=== PATIENT | female | born 1955 | race Caucasian/White ===

== ENCOUNTER → 2016-06-08 | Outpatient (CLI) | payer OTHER, MEDICARE ==
[~2016-06-08] MED LIST: /PREG25CA PO; ACET65TA; ADVIL PO; ASPI81TA3; BISA10SU2; BUSP10TA2; COLA100C2; DEPA500T PO; LORTAB; METO50TA4 PO; NORT25CA2 OR; PENNSAID DROPS TOP; PRAV80TA2 PO; SENN8.6T14; SENO8.6T5; SIMV20TA2 PO; THERGRAN; TIZA4TAB OR; TRAM50TA2; TRAM50TA2 OR; ZOMI2.5T PO; tps cream TD
--- NOTE | 2016-06-09 23:58 | ECWPNPC ---
PATIENT NAME: CHRISTOPHER POWELL : 1955 GENDER: FEMALE VISIT DATE: 06/08/2016 DISCHARGE DATE: 06/08/16 1540 VISIT LOCKED DATE TIME: PHYSICIAN: CELENA LEWIS RESOURCE: CELENA LEWIS REASON FOR APPOINTMENT 1. FOLLOWUP-RT ANKLE HISTORY OF PRESENT ILLNESS HISTORY OF PRESENT ILLNESS: PAIN THE PATIENT DESCRIBES THE PAIN... FALL RISK SCREENING: SCREENING :NO FALLS IN THE PAST YEAR TODAY'S VISIT: NOTES: NO FAULT FOLLOWUP FOR RIGHT FOOT/ANKLE PAIN. RATES PAIN TODAY 7/10. PAIN AND SWELLING ARE WORSE IN THE RIGHT FOOT AND ANKLE WITH STANDING AND WALKING. . CURRENT MEDICATIONS TAKING DEPAKOTE 500 MG TABLET DELAYED RELEASE 1 TABLET ORALLY TWICE A DAY TAKING NORTRIPTYLINE HCL 50 MG CAPSULE 1 CAPSULE AT BEDTIME ORALLY QHS TAKING MAXALT-SHOP FIRER/FIREMAN 10 MG TABLET DISPERSIBLE 1 TABLET ON THE TONGUE AND ALLOW TO DISSOLVE NEEDED ONE TIME ORALLY ONCE A DAY TAKING METOPROLOL TARTRATE 50 MG TABLET 1 TABLET ORALLY QHS TAKING PRAVASTATIN SODIUM 40 MG TABLET 1 TABLET ORALLY QHS TAKING CALCIUM 500 +D 500-400 MG-UNIT TABLET ORALLY BID TAKING ASPIRIN EC 81 MG TABLET DELAYED RELEASE 1 TABLET ORALLY ONCE A DAY TAKING TRAMADOL HCL 50 MG TABLET 1 TABLET ORALLY TAKE 1 PO Q 6-8 HRS PRN PAIN MDD=3 TAKING EXTRA STRENGTH ACETAMINOPHEN 500 MG CAPSULE 2 CAPSULES NEEDED ORALLY EVERY 6 HRS TAKING ADVIL 200 MG CAPSULE 1 CAPSULE NEEDED ORALLY EVERY 6 HRS MEDICATION LIST REVIEWED AND RECONCILED WITH THE PATIENT ALLERGIES COMPAZINE: SEIZURE SOCIAL HISTORY GENERAL: TOBACCO USE ARE YOU A:NONSMOKER LEARNING BARRIERS / SPECIAL NEEDS ORIENTED TO PLAN OF CARE: PATIENT, PAIN MANAGEMENT PATIENT, ORIENTED TO PLAN OF CARE: PATIENT, PAIN MANAGEMENT PATIENT. NEW PATIENT PAIN DIARY TODAY'S VISITNOTES FROM 0-10, WHAT LEVEL IS YOUR PAIN TODAY?0 PAIN CLINIC PFS, CLERGY, PUBLIC HEALTH REFERRALS PFS REFERRAL NEEDED?NO CLERGY REFERRAL NEEDED?NO PUBLIC HEALTH REFERRAL NEEDED?NO WAS THE PROVIDER NOTIFIED OF ANY PERTINENT INFO?NO PFS REFERRAL NEEDED?NO CLERGY REFERRAL NEEDED?NO PUBLIC HEALTH REFERRAL NEEDED?NO WAS THE PROVIDER NOTIFIED OF ANY PERTINENT INFO?NO REVIEW OF SYSTEMS CONSTITUTIONAL: ANY CHANGE IN YOUR MEDICAL CONDITION? NO . CHILLS NO . FEVER NO . INFECTION: DO YOU HAVE NEW INFECTIONS? NO . DO YOU HAVE HISTORY OF MRSA? NO . MUSCULOSKELETAL: ANY NEW PATTERNS OF PAIN OR NUMBNESS? NO . GASTROENTEROLOGY: ANY NEW CHANGE IN BOWEL CONTROL? NO . GENITOURINARY: ANY NEW CHANGE IN BLADDER CONTROL? NO . IS THERE A CHANCE YOU COULD BE ? NO . HEMATOLOGY/LYMPH: DO YOU TAKE ANY BLOOD THINNERS? (FOR EXAMPLE- COUMADIN, PLAVIX, AGGRENOX, PLATEL, PRADAXA, OR XARELTO) NO . WHEN WAS YOUR LAST DOSE? DATE: TIME: . NEUROLOGY: HAVE YOU FALLEN IN THE PAST 6 MONTHS? YES-NO INJURY/NO ED EVAL . ANY NEW EXTREMITY NUMBNESS OR WEAKNESS? NO . CARDIOLOGY: DO YOU HAVE A PACEMAKER OR DEFIBRILLATOR? NO . RESPIRATORY: HAVE YOU BEEN SICK IN THE PAST WEEK? NO - HAD SIGNIFICANT RESP ILLNESS AND COLD SYMPTOMS X 3 THIS WINTER . FEVER NO . FLU LIKE SYMPTOMS? NO . COUGH NO . INTEGUMENTARY: DO YOU HAVE ANY RASHES OR OPEN SORES? NO . ALLERGIC/IMMUNO: ARE YOU ALLERGIC TO SHELLFISH OR IV DYE? NO . ANY NEW ALLERGIES? NO . PSYCHIATRIC: DO YOU HAVE THOUGHTS OF HURTING YOURSELF OR SOMEONE ELSE? NO . ARE YOU ABUSED, NEGLECTED, OR IN AN UNSAFE ENVIRONMENT? NO . ENDOCRINOLOGY: ARE YOU DIABETIC? NO . OTHER: DO YOU NEED ANY PRESCRIPTIONS? YES TRAMADOL . IF YES, PLEASE LIST: ____ . ANY NEW PROBLEMS WITH YOUR MEDICATIONS? NO . WHEN DID YOU LAST EAT? ____ . WHEN DID YOU LAST DRINK? ____ . WHAT DID YOU LAST DRINK? ____ . NAME OF PERSON DRIVING YOU HOME? ____ . DO YOU HAVE ANY OTHER QUESTIONS OR CONCERNS NO . REVIEWED BY: PROVIDER: CELENA KAPOOR . VITAL SIGNS WT 146 LBS, HT 5'3, BMI 28.51 INDEX, BP 144/71 MM HG, HR 104 /MIN, RR 16 /MIN, TEMP 97.4 F, OXYGEN SAT % 99%, NA INITIALS SC 15:07, REVIEWED BY: MLF. EXAMINATION GENERAL EXAMINATION: LUNGS:CLEAR TO AUSCULTATION BILATERALLY. HEART:HEART RATE REGULAR. MUSCULOSKELETAL:GAIT ANTALGIC. CANE USED FOR BALANCE. RIGHT ANKLE STIFF WITH MIN TO NO FLEXION/EXTENSION/ROTATION. EXTREMITIES:MINIMAL EDEMA RIGHT FOOT ANKLE - MODERATE REDDISH COLORATION TO RIGHT FOOT. VERY THIN STRETCH VERONICA FISSURE OVER RIGHT MEDIAL MALLEOLUS. OPEN AREAS - SLIGHT ERRYTHEMA. ANKLE STIFF, CAN FLEX TOES. 1+ DORSAL PEDALIS PULSE.. 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 CONTINUE CURRENT MEDS. SCRIPT FOR BRITISH CRUTCHES GIVEN (LOFSTRAND). PROCEDURE CODES FA211 ESTABILISHED PATIENT [facility] CHARGE DISPOSITION & COMMUNICATION FOLLOW UP 3 MONTHS (REASON: NF RIGHT FOOT) ELECTRONICALLY SIGNED BY NADIA MORGAN ON 06/09/2016 AT 12:14 PM EST DISCLAIMER : THIS IS A VISIT SUMMARY EXTRACTED FROM THE [employer] CHART. IT IS NOT A COPY OF THE [employer] PROGRESS NOTE. KIAN
== END ==
LOC: M PAIN 14:40
PROVIDERS: ATTEND Nurse Practitioner Family
DX: Z09 Encounter for follow-up examination after completed treatment for conditions other than malignant neoplasm (principal); G90.521 Complex regional pain syndrome I of right lower limb; M25.571 Pain in right ankle and joints of right foot; Z88.8 Allergy status to other drugs, medicaments and biological substances; Z79.1 Long term (current) use of non-steroidal anti-inflammatories (NSAID); Z79.82 Long term (current) use of aspirin; Z79.891 Long term (current) use of opiate analgesic; Z79.899 Other long term (current) drug therapy

== ENCOUNTER → 2016-07-27 | Outpatient (REF) | payer MEDICARE | LOC: M LABNEURO 11:17 | PROVIDERS: ATTEND Physician Assistant Medical | DX: G43.909 Migraine, unspecified, not intractable, without status migrainosus (principal); M25.559 Pain in unspecified hip; M25.569 Pain in unspecified knee ==

== ENCOUNTER → 2016-09-16 | Outpatient (CLI) | payer OTHER, MEDICARE ==
--- NOTE | 2016-10-01 00:12 | ECWPNPC ---
PATIENT NAME: CHRISTOPHER POWELL : 1955 GENDER: FEMALE VISIT DATE: 09/16/2016 DISCHARGE DATE: 09/16/16 1030 VISIT LOCKED DATE TIME: PHYSICIAN: CELENA LEWIS RESOURCE: CELENA LEWIS REASON FOR APPOINTMENT 1. ANKLE HISTORY OF PRESENT ILLNESS HISTORY OF PRESENT ILLNESS: PAIN THE PATIENT DESCRIBES THE PAIN... FALL RISK SCREENING: SCREENING :NO FALLS IN THE PAST YEAR TODAY'S VISIT: NOTES: NO FAULT FOLLOW UP FOR RIGHT ANKLE/FOOT PAIN. RATES PAIN TODAY 7/10. CONTINUES TO HAVE SWELLING AND INCREASED PAIN IN RIGHT FOOT/ANKLE WITH STANDING OR WALKING. USES CANE FOR SUPPRT.. MEDS HELP DOES ELEVATING FOOT AND MASSAGE THERAPY.. CURRENT MEDICATIONS TAKING DEPAKOTE 500 MG TABLET DELAYED RELEASE 1 TABLET ORALLY TWICE A DAY TAKING NORTRIPTYLINE HCL 50 MG CAPSULE 1 CAPSULE AT BEDTIME ORALLY QHS TAKING MAXALT-[facility] MEDICAL AND LAB DIRECTOR 10 MG TABLET DISPERSIBLE 1 TABLET ON THE TONGUE AND ALLOW TO DISSOLVE NEEDED ONE TIME ORALLY ONCE A DAY TAKING METOPROLOL TARTRATE 50 MG TABLET 1 TABLET ORALLY QHS TAKING PRAVASTATIN SODIUM 40 MG TABLET 1 TABLET ORALLY QHS TAKING CALCIUM 500 +D 500-400 MG-UNIT TABLET ORALLY BID TAKING ASPIRIN EC 81 MG TABLET DELAYED RELEASE 1 TABLET ORALLY ONCE A DAY TAKING EXTRA STRENGTH ACETAMINOPHEN 500 MG CAPSULE 2 CAPSULES NEEDED ORALLY EVERY 6 HRS TAKING ADVIL 200 MG CAPSULE 1 CAPSULE NEEDED ORALLY EVERY 6 HRS TAKING TRAMADOL HCL 50 MG TABLET 1 TABLET ORALLY TAKE 1 PO Q 6-8 HRS PRN PAIN MDD=3 TAKING PROTONIX 20 MG TABLET DELAYED RELEASE TABLET ORALLY TWICE A DAY MEDICATION LIST REVIEWED AND RECONCILED WITH THE PATIENT ALLERGIES COMPAZINE: SEIZURE REVIEW OF SYSTEMS REVIEWED BY: PROVIDER: CELENA LEWIS DEPUTY SHERIFF GENERALIST/BAILIFF . CONSTITUTIONAL: ANY CHANGE IN YOUR MEDICAL CONDITION? NO . CHILLS NO . FEVER NO . INFECTION: DO YOU HAVE NEW INFECTIONS? NO . DO YOU HAVE HISTORY OF MRSA? NO . MUSCULOSKELETAL: ANY NEW PATTERNS OF PAIN OR NUMBNESS? NO . GASTROENTEROLOGY: ANY NEW CHANGE IN BOWEL CONTROL? NO . ACID REFLUX NEW DIAGNOSIS WITH START OF PROTONIX WITH GOOD RELIEF . GENITOURINARY: ANY NEW CHANGE IN BLADDER CONTROL? NO . IS THERE A CHANCE YOU COULD BE ? NO . HEMATOLOGY/LYMPH: DO YOU TAKE ANY BLOOD THINNERS? (FOR EXAMPLE- COUMADIN, PLAVIX, AGGRENOX, PLATEL, PRADAXA, OR XARELTO) NO . WHEN WAS YOUR LAST DOSE? DATE: TIME: . NEUROLOGY: HAVE YOU FALLEN IN THE PAST 6 MONTHS? NO . ANY NEW EXTREMITY NUMBNESS OR WEAKNESS? NO . CARDIOLOGY: DO YOU HAVE A PACEMAKER OR DEFIBRILLATOR? NO . CHEST PAIN EPIGASTRIC REGION WITH RADIATION TO SHOULDER CLAUDETTE - HAD FULL CARDIAC WORKUP WHICH WAS OK . RESPIRATORY: HAVE YOU BEEN SICK IN THE PAST WEEK? NO . FEVER NO . FLU LIKE SYMPTOMS? NO . COUGH NO . INTEGUMENTARY: DO YOU HAVE ANY RASHES OR OPEN SORES? NO . ALLERGIC/IMMUNO: ARE YOU ALLERGIC TO SHELLFISH OR IV DYE? NO . ANY NEW ALLERGIES? NO . PSYCHIATRIC: DO YOU HAVE THOUGHTS OF HURTING YOURSELF OR SOMEONE ELSE? NO . ARE YOU ABUSED, NEGLECTED, OR IN AN UNSAFE ENVIRONMENT? NO . ENDOCRINOLOGY: ARE YOU DIABETIC? NO . OTHER: DO YOU NEED ANY PRESCRIPTIONS? NO . IF YES, PLEASE LIST: ____ . ANY NEW PROBLEMS WITH YOUR MEDICATIONS? NO . WHEN DID YOU LAST EAT? ____ . WHEN DID YOU LAST DRINK? ____ . WHAT DID YOU LAST DRINK? ____ . NAME OF PERSON DRIVING YOU HOME? ____ . DO YOU HAVE ANY OTHER QUESTIONS OR CONCERNS NO . VITAL SIGNS WT 146 LBS, HT 5'3, BMI 28.51 INDEX, BP 121/69 MM HG, HR 82 /MIN, RR 16 /MIN, TEMP 97.7 F, OXYGEN SAT % 99%, NA INITIALS AW 1006, REVIEWED BY: CM. EXAMINATION GENERAL EXAMINATION: LUNGS:CLEAR TO AUSCULTATION BILATERALLY. HEART:HEART RATE REGULAR. MUSCULOSKELETAL:GAIT ANTALGIC. CANE USED FOR BALANCE. RIGHT ANKLE STIFF WITH MIN TO NO FLEXION/EXTENSION/ROTATION. EXTREMITIES:MINIMAL EDEMA RIGHT FOOT ANKLE - MODERATE REDDISH COLORATION TO RIGHT FOOT IN CIRCUMFERENTIAL FASHION FROM ABOVE THE BILATERAL MALLEOLUS TO THE TOES.. VERY THIN STRETCH VERONICA FISSURE OVER RIGHT MEDIAL MALLEOLUS. OPEN AREAS - SLIGHT ERRYTHEMA. ANKLE STIFF, CAN FLEX TOES. 1+ DORSAL PEDALIS PULSE. HPYERSENSATIVINTY TO ANY LIGHT TOUCH AIR MOVEMENT OVER FOOR IS EXQUISITELY PAINFUL. SLOW TO RISE TO STANDING POSITION - GAIT ANTALGIC. RIGHT LEG LIMP. CANE USED FOR BALANCE AND SUPPORT. 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 CLINICAL NOTES: ISTOP REGISTRY REVIEWED AND DEMNOSTRATES COMPLLIANCE. BRINGS IN MEDICATIONS WHICH IS APPROPRIATE FOR WHAT WAS DISPENSED. PROCEDURE CODES FA211 ESTABILISHED PATIENT [facility] CHARGE DISPOSITION & COMMUNICATION FOLLOW UP 3 MONTHS (REASON: RT FOOT) ELECTRONICALLY SIGNED BY NADIA MORGAN ON 09/30/2016 AT 05:16 PM EDT DISCLAIMER : THIS IS A VISIT SUMMARY EXTRACTED FROM THE [employer] CHART. IT IS NOT A COPY OF THE [employer] PROGRESS NOTE. MTDD
== END ==
LOC: M PAIN 09:40
PROVIDERS: ATTEND Nurse Practitioner Family
DX: G90.521 Complex regional pain syndrome I of right lower limb (principal); M25.571 Pain in right ankle and joints of right foot; G89.29 Other chronic pain; Z79.82 Long term (current) use of aspirin; Z79.891 Long term (current) use of opiate analgesic; Z88.8 Allergy status to other drugs, medicaments and biological substances

== ENCOUNTER → 2016-12-19 | Outpatient (CLI) | payer OTHER, MEDICARE ==
--- NOTE | 2017-01-20 01:46 | ECWPNPC ---
PATIENT NAME: CHRISTOPHER POWELL : 1955 GENDER: FEMALE VISIT DATE: 12/19/2016 DISCHARGE DATE: 12/19/16 1452 VISIT LOCKED DATE TIME: PHYSICIAN: CELENA LEWIS RESOURCE: CELENA LEWIS REASON FOR APPOINTMENT 1. RT ANKLE HISTORY OF PRESENT ILLNESS HISTORY OF PRESENT ILLNESS: PAIN THE PATIENT DESCRIBES THE PAIN... FALL RISK SCREENING: SCREENING :NO FALLS IN THE PAST YEAR TODAY'S VISIT: NOTES: NO FAULT FOLLOWUP FOR RIGHTFOOT/ANKLE PAIN. NOTES INCREASED PAIN RIGHT FOOT AND ANKLE OVER THE LAST FEW WEEKS. PAIN IS MOST INTENSE OVER INNER ASPECT /AROUND THE INNER MALLEOLUS. FOOT SEEMS TO BE SWELLING MORE. RATES PAIN 8/10, PAIN IS WORSE WHEN STANDING AND WALKING. . CURRENT MEDICATIONS TAKING DEPAKOTE 500 MG TABLET DELAYED RELEASE 1 TABLET ORALLY TWICE A DAY TAKING NORTRIPTYLINE HCL 50 MG CAPSULE 1 CAPSULE AT BEDTIME ORALLY QHS TAKING MAXALT-RADIO/TV TECHNICIAN 10 MG TABLET DISPERSIBLE 1 TABLET ON THE TONGUE AND ALLOW TO DISSOLVE NEEDED ONE TIME ORALLY ONCE A DAY TAKING METOPROLOL TARTRATE 50 MG TABLET 1 TABLET ORALLY QHS TAKING PRAVASTATIN SODIUM 40 MG TABLET 1 TABLET ORALLY QHS TAKING CALCIUM 500 +D 500-400 MG-UNIT TABLET ORALLY BID TAKING ASPIRIN EC 81 MG TABLET DELAYED RELEASE 1 TABLET ORALLY ONCE A DAY TAKING EXTRA STRENGTH ACETAMINOPHEN 500 MG CAPSULE 2 CAPSULES NEEDED ORALLY EVERY 6 HRS TAKING ADVIL 200 MG CAPSULE 1 CAPSULE NEEDED ORALLY EVERY 6 HRS TAKING TRAMADOL HCL 50 MG TABLET 1 TABLET ORALLY TAKE 1 PO Q 6-8 HRS PRN PAIN MDD=3 TAKING PROTONIX 20 MG TABLET DELAYED RELEASE TABLET ORALLY TWICE A DAY MEDICATION LIST REVIEWED AND RECONCILED WITH THE PATIENT PAST MEDICAL HISTORY GERD MIGRAINES HTN ALLERGIES COMPAZINE: SEIZURE REVIEW OF SYSTEMS REVIEWED BY: PROVIDER: CELENA KAPOOR . CONSTITUTIONAL: ANY CHANGE IN YOUR MEDICAL CONDITION? NO . CHILLS NO . FEVER NO . INFECTION: DO YOU HAVE NEW INFECTIONS? NO . DO YOU HAVE HISTORY OF MRSA? NO . MUSCULOSKELETAL: ANY NEW PATTERNS OF PAIN OR NUMBNESS? NO . GASTROENTEROLOGY: ANY NEW CHANGE IN BOWEL CONTROL? NO . GENITOURINARY: ANY NEW CHANGE IN BLADDER CONTROL? NO . IS THERE A CHANCE YOU COULD BE ? NO . HEMATOLOGY/LYMPH: DO YOU TAKE ANY BLOOD THINNERS? (FOR EXAMPLE- COUMADIN, PLAVIX, AGGRENOX, PLATEL, PRADAXA, OR XARELTO) NO . WHEN WAS YOUR LAST DOSE? DATE: TIME: . NEUROLOGY: HAVE YOU FALLEN IN THE PAST 6 MONTHS? NO . ANY NEW EXTREMITY NUMBNESS OR WEAKNESS? NO . CARDIOLOGY: DO YOU HAVE A PACEMAKER OR DEFIBRILLATOR? NO . RESPIRATORY: HAVE YOU BEEN SICK IN THE PAST WEEK? NO . FEVER NO . FLU LIKE SYMPTOMS? NO . COUGH NO . INTEGUMENTARY: DO YOU HAVE ANY RASHES OR OPEN SORES? NO . ALLERGIC/IMMUNO: ARE YOU ALLERGIC TO SHELLFISH OR IV DYE? NO . ANY NEW ALLERGIES? NO . PSYCHIATRIC: DO YOU HAVE THOUGHTS OF HURTING YOURSELF OR SOMEONE ELSE? NO . ARE YOU ABUSED, NEGLECTED, OR IN AN UNSAFE ENVIRONMENT? NO . ENDOCRINOLOGY: ARE YOU DIABETIC? NO . OTHER: DO YOU NEED ANY PRESCRIPTIONS? NO . IF YES, PLEASE LIST: ____ . ANY NEW PROBLEMS WITH YOUR MEDICATIONS? NO . WHEN DID YOU LAST EAT? ____ . WHEN DID YOU LAST DRINK? ____ . WHAT DID YOU LAST DRINK? ____ . NAME OF PERSON DRIVING YOU HOME? ____ . DO YOU HAVE ANY OTHER QUESTIONS OR CONCERNS NO . VITAL SIGNS WT 140 LBS, HT 5'3, BMI 27.34 INDEX, BP 130/75 MM HG, HR 86 /MIN, RR 18 /MIN, TEMP 98.3 F, OXYGEN SAT % 99%, NA INITIALS [id number]. EXAMINATION GENERAL EXAMINATION: PSYCHALERT , ORIENTED X 3 , APPROPRIATE MOOD AND AFFECT . LUNGS:CLEAR TO AUSCULTATION BILATERALLY. HEART:HEART RATE REGULAR, NORMAL S1S2. MUSCULOSKELETAL:CANE USED FOR BALANCE WITH AMBULATION. GAIT ANTALGIC. EXTREMITIES:3 MM DARK LESION NOTED ON TIP OF RIGHT GREAT TOE. CALLUS ALONG LATERAL ASPECT OF RIGHT GREAT TOES. FOOT COOL. RIGHT FOOT/ANKLE DUSKY PURPLE IN COLORATION. TRACE EDEMA NOTED OVER DORSUM OF FOOT. SKIN TIGHT, SHINEY OVER FOOT AND ANKLE. VERY LIMITED ROM WITH FLEX/EXTENSION/INTERNAL/EXTERNAL ROTATION. HYPERSENSATIVITY TO ANY LIGHT TOUCH OR AIR MOVEMENT OVER FOOT/ANKLE. IN COMPARISON LEFT ANKLE FOOT WITH NORMAL COLOR, SENSATION,MOVEMENT. 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 PROCEDURE CODES FA211 ESTABILISHED PATIENT [facility] CHARGE DISPOSITION & COMMUNICATION FOLLOW UP 4 MONTHS (REASON: NF - RIGHT FOOT/ANKLE) ELECTRONICALLY SIGNED BY NADIA MORGAN ON 01/17/2017 AT 01:05 PM EDT DISCLAIMER : THIS IS A VISIT SUMMARY EXTRACTED FROM THE [employer] CHART. IT IS NOT A COPY OF THE [employer] PROGRESS NOTE. KIAN
== END ==
LOC: M PAIN 14:00
PROVIDERS: ATTEND Nurse Practitioner Family
DX: G90.521 Complex regional pain syndrome I of right lower limb (principal); M25.571 Pain in right ankle and joints of right foot; K21.9 Gastro-esophageal reflux disease without esophagitis; G43.909 Migraine, unspecified, not intractable, without status migrainosus; I10 Essential (primary) hypertension; Z88.8 Allergy status to other drugs, medicaments and biological substances; Z79.52 Long term (current) use of systemic steroids; Z79.891 Long term (current) use of opiate analgesic; Z79.899 Other long term (current) drug therapy

== ENCOUNTER → 2017-04-18 | Outpatient (CLI) | payer OTHER, MEDICARE | LOC: M PAIN 13:30 | DX: G90.521 Complex regional pain syndrome I of right lower limb (principal); M25.571 Pain in right ankle and joints of right foot; Z79.82 Long term (current) use of aspirin; Z79.891 Long term (current) use of opiate analgesic; Z79.899 Other long term (current) drug therapy; Z88.8 Allergy status to other drugs, medicaments and biological substances | CPT/HCPCS: G0463 ==

== ENCOUNTER → 2017-07-20 | Outpatient (CLI) | payer MEDICARE ==
[2017-07-20 13:49] LABS: HEMATOCRIT 40.1 % (36.0-47.0); HEMOGLOBIN 12.9 g/dl (12.0-15.5); MEAN CORPUSCULAR HEMOGLOBIN 29.8 pg (27.0-33.0); MEAN CORPUSCULAR HGB CONC 32.2 g/dl (32.0-36.5); MEAN CORPUSCULAR VOLUME 92.6 fl (80.0-96.0); PLATELET COUNT, AUTOMATED 277 10^3/uL (150-450); RED BLOOD COUNT 4.33 10^6/uL (4.00-5.40); RED CELL DISTRIBUTION WIDTH 11.9 % (11.5-14.5); WHITE BLOOD COUNT 4.8 10^3/uL (4.0-10.0)
[2017-07-20 14:13] LABS: ALBUMIN 4.2 GM/DL (3.2-5.2); ALKALINE PHOSPHATASE 75 U/L (45-117); ALT/SGPT 22 U/L (12-78); ANION GAP 7 MEQ/L (8-16); AST/SGOT 14 U/L (7-37); BILIRUBIN,TOTAL 0.7 MG/DL (0.2-1.0); BLOOD UREA NITROGEN 25 MG/DL (7-18); CALCIUM LEVEL 9.6 MG/DL (8.8-10.2); CARBON DIOXIDE LEVEL 29 MEQ/L (21-32); CHLORIDE LEVEL 108 MEQ/L (98-107); CHOLESTEROL LEVEL 226 MG/DL (<200); CHOLESTEROL RISK RATIO 3.275 (<5); CREATININE FOR GFR 0.86 MG/DL (0.55-1.30); GLOMERULAR FILTRATION RATE > 60.0 (>45); GLUCOSE, FASTING 92 MG/DL (70-100); HDL CHOLESTEROL 69 MG/DL (>40); IRON (FE) 70 UG/DL (50-170); LDL CHOLESTEROL 97.4 MG/DL (<100); NON-HDL-C 157 MG/DL; POTASSIUM SERUM 4.9 MEQ/L (3.5-5.1); SODIUM LEVEL 144 MEQ/L (136-145); TOTAL PROTEIN 7.7 GM/DL (6.4-8.2); TRIGLYCERIDES LEVEL 298 MG/DL (<150)
[2017-07-20 14:26] LABS: APPEARANCE, URINE CLEAR (CLEAR); BACTERIA, URINE AUTO NEGATIVE (NEGATIVE); BILIRUBIN, URINE AUTO NEGATIVE (NEGATIVE); BLOOD, URINE BLOOD 1+ (NEGATIVE); COLOR, URINE YELLOW (YELLOW); GLUCOSE, URINE (UA) AUTO NEGATIVE (NEGATIVE); KETONE, URINE AUTO NEGATIVE (NEGATIVE); LEUKOCYTE ESTERASE, URINE AUTO 1+ (NEGATIVE); MUCUS, URINE SMALL (NEGATIVE); NITRITE, URINE AUTO NEGATIVE (NEGATIVE); PROTEIN, URINE AUTO NEGATIVE (NEGATIVE); RBC, URINE AUTO 1 /HPF (0-3); SPECIFIC GRAVITY URINE AUTO 1.014 (1.002-1.035); SQUAMOUS EPITHELIAL CELL UR AU 1 /HPF (0-6); UROBILINOGEN, URINE AUTO 0.2 mg/dL (0.0-2.0); WBC, URINE AUTO 3 /HPF (0-3)
[2017-07-20 14:45] LABS: ESTIMATED AVERAGE GLUCOSE 100 MG/DL (60-110); HEMOGLOBIN A1c 5.1 %
[2017-07-21 08:18] LABS: FOLATE 12.7 NG/ML (>5.4); VITAMIN B12 LEVEL 597 PG/ML (247-911)
== END ==
LOC: M SMT 08:50
DX: E78.5 Hyperlipidemia, unspecified (principal); I10 Essential (primary) hypertension; I34.0 Nonrheumatic mitral (valve) insufficiency; I48.91 Unspecified atrial fibrillation; G43.909 Migraine, unspecified, not intractable, without status migrainosus; Z51.81 Encounter for therapeutic drug level monitoring; Z79.899 Other long term (current) drug therapy
CPT/HCPCS: 82746

== ENCOUNTER → 2017-07-20 | Outpatient (CLI) | payer MEDICARE ==
[2017-07-20 14:17] LABS: VALPROIC ACID (DEPAKOTE) 51.6 UG/ML (50.0-100.0)
== END ==
LOC: M SMT 08:55
DX: G43.909 Migraine, unspecified, not intractable, without status migrainosus (principal); Z51.81 Encounter for therapeutic drug level monitoring; Z79.899 Other long term (current) drug therapy

== ENCOUNTER → 2017-08-01 | Outpatient (CLI) | payer OTHER, MEDICARE | LOC: M PAIN 13:00 | DX: G90.521 Complex regional pain syndrome I of right lower limb (principal); M25.571 Pain in right ankle and joints of right foot; K21.9 Gastro-esophageal reflux disease without esophagitis; G43.909 Migraine, unspecified, not intractable, without status migrainosus; I10 Essential (primary) hypertension; G47.30 Sleep apnea, unspecified; Z79.82 Long term (current) use of aspirin; Z79.891 Long term (current) use of opiate analgesic; Z79.899 Other long term (current) drug therapy; Z88.8 Allergy status to other drugs, medicaments and biological substances | CPT/HCPCS: G0463 ==

== ENCOUNTER → 2017-11-01 | Outpatient (CLI) | payer OTHER, MEDICARE | LOC: M PAIN 13:15 | DX: G90.521 Complex regional pain syndrome I of right lower limb (principal); M25.571 Pain in right ankle and joints of right foot; K21.9 Gastro-esophageal reflux disease without esophagitis; G43.909 Migraine, unspecified, not intractable, without status migrainosus; I10 Essential (primary) hypertension; G47.30 Sleep apnea, unspecified; Z79.82 Long term (current) use of aspirin; Z79.891 Long term (current) use of opiate analgesic; Z79.899 Other long term (current) drug therapy; Z88.8 Allergy status to other drugs, medicaments and biological substances | CPT/HCPCS: G0463 ==

== ENCOUNTER → 2018-02-01 | Outpatient (CLI) | payer OTHER, MEDICARE | LOC: M PAIN 13:00 | DX: G90.521 Complex regional pain syndrome I of right lower limb (principal); M25.571 Pain in right ankle and joints of right foot; K21.9 Gastro-esophageal reflux disease without esophagitis; G43.909 Migraine, unspecified, not intractable, without status migrainosus; I10 Essential (primary) hypertension; G47.30 Sleep apnea, unspecified; Z88.8 Allergy status to other drugs, medicaments and biological substances; Z79.82 Long term (current) use of aspirin; Z79.899 Other long term (current) drug therapy | CPT/HCPCS: G0463 ==

== ENCOUNTER → 2018-04-18 | Outpatient (CLI) | payer MEDICARE | LOC: M SMT 13:55 | PROVIDERS: ATTEND Physician Assistant Medical | DX: G43.909 Migraine, unspecified, not intractable, without status migrainosus (principal); Z51.81 Encounter for therapeutic drug level monitoring; Z79.899 Other long term (current) drug therapy ==

== ENCOUNTER → 2018-05-04 | Outpatient (CLI) | payer OTHER, MEDICARE ==
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
== END ==
LOC: M PAIN 13:00
PROVIDERS: ATTEND Anesthesiology
DX: M79.2 Neuralgia and neuritis, unspecified (principal); M25.571 Pain in right ankle and joints of right foot; G89.29 Other chronic pain; I10 Essential (primary) hypertension; K21.9 Gastro-esophageal reflux disease without esophagitis; G43.909 Migraine, unspecified, not intractable, without status migrainosus; G47.30 Sleep apnea, unspecified; Z79.82 Long term (current) use of aspirin; Z79.899 Other long term (current) drug therapy; Z88.8 Allergy status to other drugs, medicaments and biological substances

== ENCOUNTER → 2018-10-02 | Outpatient (CLI) | payer MEDICARE, OTHER ==
[~2018-10-02] MED LIST changes: -/PREG25CA PO; +PREG25CA PO
== END ==
LOC: M SMT 14:59
PROVIDERS: ATTEND Physician Assistant Medical
DX: G43.909 Migraine, unspecified, not intractable, without status migrainosus (principal); Z51.81 Encounter for therapeutic drug level monitoring

== ENCOUNTER → 2018-10-02 | Outpatient (CLI) | payer MEDICARE, OTHER ==
[2018-10-02 17:50] LABS: HEMATOCRIT 38.5 % (36.0-47.0); HEMOGLOBIN 12.7 g/dl (12.0-15.5); MEAN CORPUSCULAR HEMOGLOBIN 31.8 pg (27.0-33.0); MEAN CORPUSCULAR VOLUME 96.5 fl (80.0-96.0); PLATELET COUNT, AUTOMATED 270 10^3/uL (150-450); RED BLOOD COUNT 3.99 10^6/uL (4.00-5.40); WHITE BLOOD COUNT 3.4 10^3/uL (4.0-10.0)
[2018-10-02 18:01] LABS: ALBUMIN 3.8 GM/DL (3.2-5.2); ALT/SGPT 31 U/L (12-78); BILIRUBIN,TOTAL 0.9 MG/DL (0.2-1.0); BLOOD UREA NITROGEN 15 MG/DL (7-18); CALCIUM LEVEL 9.5 MG/DL (8.8-10.2); CARBON DIOXIDE LEVEL 29 MEQ/L (21-32); CHLORIDE LEVEL 107 MEQ/L (98-107); CHOLESTEROL LEVEL 187 MG/DL (<200); CREATININE FOR GFR 0.91 MG/DL (0.55-1.30); FREE T4 0.96 NG/DL (0.76-1.46); GLOMERULAR FILTRATION RATE > 60.0 (>45); GLUCOSE, FASTING 76 MG/DL (70-100); HDL CHOLESTEROL 68 MG/DL (>40); IRON (FE) 84 UG/DL (50-170); LDL CHOLESTEROL 99 MG/DL (<100); MAGNESIUM LEVEL 2.3 MG/DL (1.8-2.4); NON-HDL-C 119 MG/DL; POTASSIUM SERUM 4.6 MEQ/L (3.5-5.1); RHEUMATOID FACTOR QUANT < 10.0 IU/ML (<15.0); SODIUM LEVEL 142 MEQ/L (136-145); TOTAL PROTEIN 7.3 GM/DL (6.4-8.2); TRIGLYCERIDES LEVEL 98 MG/DL (<150)
[2018-10-02 18:05] LABS: VITAMIN B12 LEVEL 886 PG/ML (247-911)
[2018-10-02 18:09] LABS: APPEARANCE, URINE CLEAR (CLEAR); BACTERIA, URINE AUTO NEGATIVE (NEGATIVE); BILIRUBIN, URINE AUTO NEGATIVE (NEGATIVE); BLOOD, URINE BLOOD NEGATIVE (NEGATIVE); COLOR, URINE YELLOW (YELLOW); GLUCOSE, URINE (UA) AUTO NEGATIVE (NEGATIVE); KETONE, URINE AUTO NEGATIVE (NEGATIVE); LEUKOCYTE ESTERASE, URINE AUTO TRACE (NEGATIVE); NITRITE, URINE AUTO NEGATIVE (NEGATIVE); PROTEIN, URINE AUTO NEGATIVE (NEGATIVE); RBC, URINE AUTO 0 /HPF (0-3); SPECIFIC GRAVITY URINE AUTO 1.012 (1.002-1.035); SQUAMOUS EPITHELIAL CELL UR AU 0 /HPF (0-6); UROBILINOGEN, URINE AUTO 0.2 mg/dL (0.0-2.0); WBC, URINE AUTO 1 /HPF (0-3)
[2018-10-02 18:20] LABS: HEMOGLOBIN A1c 5.4 %
[2018-10-02 19:46] LABS: ERYTHROCYTE SEDIMENTATION RATE 13 mm/hr (0-30)
[2018-10-06 00:09] LABS: ANTINUCLEAR ANTIBODIES DIRECT Negative (Negative); CYCLIC CITRULLINATED PEPTIDE 2 units (0-19)
== END ==
LOC: M SMT 15:13
PROVIDERS: ATTEND Internal Medicine Cardiovascular Disease
DX: D50.9 Iron deficiency anemia, unspecified (principal); E83.42 Hypomagnesemia; E11.9 Type 2 diabetes mellitus without complications; M06.9 Rheumatoid arthritis, unspecified; E03.9 Hypothyroidism, unspecified; D51.8 Other vitamin B12 deficiency anemias; N39.0 Urinary tract infection, site not specified; E78.5 Hyperlipidemia, unspecified; G43.909 Migraine, unspecified, not intractable, without status migrainosus; Z51.81 Encounter for therapeutic drug level monitoring

== ENCOUNTER → 2018-11-02 | Outpatient (CLI) | payer MEDICARE ==
[2018-11-02 18:01] LABS: CHOLESTEROL RISK RATIO 4.147 (<5)
== END ==
LOC: M SMT 15:23
PROVIDERS: ATTEND Internal Medicine Cardiovascular Disease
DX: E78.5 Hyperlipidemia, unspecified (principal); I11.9 Hypertensive heart disease without heart failure

== ENCOUNTER → 2021-08-24 | Outpatient (CLI) | payer MEDICARE | LOC: M WUC 13:12 | PROVIDERS: ATTEND Physician Assistant | DX: S00.33XA Contusion of nose, initial encounter (principal); W18.30XA Fall on same level, unspecified, initial encounter; Y92.009 Unspecified place in unspecified non-institutional (private) residence as the place of occurrence of the external cause ==

== ENCOUNTER → 2022-05-24 | Outpatient (CLI) | payer MEDICARE ==
[2022-05-24 17:05] LABS: EOS # 0.1 10^3/uL (0.0-0.5); EOS % 2.2 % (0.0-3.0); HEMATOCRIT 40.4 % (36.0-47.0); HEMOGLOBIN 12.8 g/dl (12.0-15.5); LYMPH # 1.5 10^3/uL (1.5-5.0); LYMPH % 35.2 % (24.0-44.0); MEAN CORPUSCULAR HGB CONC 31.7 g/dl (32.0-36.5); MEAN CORPUSCULAR VOLUME 94.6 fl (80.0-96.0); MONO # 0.4 10^3/uL (0.0-0.8); MONO % 9.5 % (2.0-8.0); NEUTROPHILS # 2.1 10^3/uL (1.5-8.5); NEUTROPHILS % 51.6 % (36.0-66.0); PLATELET COUNT, AUTOMATED 265 10^3/uL (150-450); RED BLOOD COUNT 4.27 10^6/uL (4.00-5.40); WHITE BLOOD COUNT 4.1 10^3/uL (4.0-10.0)
[2022-05-24 17:39] LABS: VALPROIC ACID (DEPAKOTE) 59.4 UG/ML (50.0-100.0)
[2022-05-24 17:53] LABS: ALBUMIN 3.8 G/DL (3.2-5.2); ALKALINE PHOSPHATASE 60 U/L (46-116); ALT/SGPT 18 U/L (7.0-40); AST/SGOT 17 U/L (<34); BILIRUBIN,TOTAL 1.1 MG/DL (0.3-1.2); BLOOD UREA NITROGEN 19 MG/DL (9-23); CALCIUM LEVEL 9.4 MG/DL (8.3-10.6); CARBON DIOXIDE LEVEL 32 MMOL/L (20-31); CHLORIDE LEVEL 104 MMOL/L (98-107); GLUCOSE, FASTING 77 MG/DL (74-106); POTASSIUM SERUM 4.2 MMOL/L (3.5-5.1); SODIUM LEVEL 141 MMOL/L (136-145); TOTAL PROTEIN 7.1 G/DL (5.7-8.2)
[2022-05-24 20:10] LABS: CREATININE FOR GFR 0.71 MG/DL (0.55-1.30); GLOMERULAR FILTRATION RATE > 60.0 (>45)
== END ==
LOC: M WUC 13:57
PROVIDERS: ATTEND Psychiatry & Neurology Neurology
DX: R51.9 Headache, unspecified (principal); Z79.899 Other long term (current) drug therapy

== ENCOUNTER → 2022-05-24 | Outpatient (CLI) | payer MEDICARE ==
[2022-05-24 17:29] LABS: CPK CREATINE PHOSPHOKINASE 91 U/L (34-145)
[2022-05-24 17:52] LABS: ALBUMIN 3.8 G/DL (3.2-5.2); ALKALINE PHOSPHATASE 62 U/L (46-116); ALT/SGPT 19 U/L (7.0-40); AST/SGOT 17 U/L (<34); BILIRUBIN,TOTAL 1.3 MG/DL (0.3-1.2); BLOOD UREA NITROGEN 19 MG/DL (9-23); CALCIUM LEVEL 9.2 MG/DL (8.3-10.6); CARBON DIOXIDE LEVEL 31 MMOL/L (20-31); CHLORIDE LEVEL 104 MMOL/L (98-107); CHOLESTEROL LEVEL 229 MG/DL (<200); CHOLESTEROL RISK RATIO 3.32 (<5); GLUCOSE, FASTING 77 MG/DL (74-106); HDL CHOLESTEROL 68.9 MG/DL (>40); LDL CHOLESTEROL 124.1 MG/DL (<100); NON-HDL-C 160 MG/DL; POTASSIUM SERUM 4.2 MMOL/L (3.5-5.1); SODIUM LEVEL 140 MMOL/L (136-145); THYROID STIMULATING HORMONE 0.996 uIU/ML (0.55-4.78); TOTAL PROTEIN 7.1 G/DL (5.7-8.2); TRIGLYCERIDES LEVEL 180 MG/DL (<150)
[2022-05-24 19:04] LABS: HEMATOCRIT 40.3 % (36.0-47.0); HEMOGLOBIN 12.8 g/dl (12.0-15.5); MEAN CORPUSCULAR HEMOGLOBIN 30.3 pg (27.0-33.0); MEAN CORPUSCULAR HGB CONC 31.8 g/dl (32.0-36.5); MEAN CORPUSCULAR VOLUME 95.3 fl (80.0-96.0); PLATELET COUNT, AUTOMATED 272 10^3/uL (150-450); RED BLOOD COUNT 4.23 10^6/uL (4.00-5.40); WHITE BLOOD COUNT 4.2 10^3/uL (4.0-10.0)
[2022-05-24 20:06] LABS: CREATININE FOR GFR 0.74 MG/DL (0.55-1.30); GLOMERULAR FILTRATION RATE > 60.0 (>45)
== END ==
LOC: M WUC 14:00
PROVIDERS: ATTEND Internal Medicine Cardiovascular Disease
DX: E11.9 Type 2 diabetes mellitus without complications (principal); D64.9 Anemia, unspecified; E03.9 Hypothyroidism, unspecified; E78.5 Hyperlipidemia, unspecified; N15.9 Renal tubulo-interstitial disease, unspecified; R51.9 Headache, unspecified; Z79.899 Other long term (current) drug therapy

== ENCOUNTER → 2024-01-11 | Outpatient (CLI) | payer MEDICARE ==
[2024-01-11 12:58] LABS: BASO # 0.1 10^3/uL (0.0-0.2); EOS # 0.2 10^3/uL (0.0-0.5); EOS % 4.2 % (0.0-3.0); HEMATOCRIT 39.6 % (36.0-47.0); HEMOGLOBIN 12.8 g/dl (12.0-15.5); LYMPH # 1.4 10^3/uL (1.5-5.0); LYMPH % 29.5 % (24.0-44.0); MEAN CORPUSCULAR HEMOGLOBIN 30.8 pg (27.0-33.0); MEAN CORPUSCULAR HGB CONC 32.3 g/dl (32.0-36.5); MEAN CORPUSCULAR VOLUME 95.4 fl (80.0-96.0); MONO # 0.5 10^3/uL (0.0-0.8); MONO % 10.6 % (2.0-8.0); NEUTROPHILS # 2.6 10^3/uL (1.5-8.5); NEUTROPHILS % 54.1 % (36.0-66.0); PLATELET COUNT, AUTOMATED 268 10^3/uL (150-450); RED BLOOD COUNT 4.15 10^6/uL (4.00-5.40); WHITE BLOOD COUNT 4.8 10^3/uL (4.0-10.0)
[2024-01-11 13:42] LABS: VALPROIC ACID (DEPAKOTE) 76.6 UG/ML (50.0-100.0)
[2024-01-11 13:45] LABS: ALBUMIN 3.9 G/DL (3.2-5.2); ALKALINE PHOSPHATASE 59 U/L (46-116); ALT/SGPT 15 U/L (7.0-40); AST/SGOT < 8 U/L (<34); BILIRUBIN,TOTAL 1.1 MG/DL (0.3-1.2); BLOOD UREA NITROGEN 26 MG/DL (9-23); CALCIUM LEVEL 10.2 MG/DL (8.3-10.6); CARBON DIOXIDE LEVEL 30 MMOL/L (20-31); CHLORIDE LEVEL 108 MMOL/L (98-107); CREATININE FOR GFR 0.76 MG/DL (0.55-1.30); GLOMERULAR FILTRATION RATE > 60.0 (>45); GLUCOSE, FASTING 68 MG/DL (74-106); POTASSIUM SERUM 4.8 MMOL/L (3.5-5.1); SODIUM LEVEL 142 MMOL/L (136-145); TOTAL PROTEIN 7.2 G/DL (5.7-8.2)
== END ==
LOC: M WUC 10:38
PROVIDERS: ATTEND Psychiatry & Neurology Neurology
DX: R51.9 Headache, unspecified (principal); Z79.899 Other long term (current) drug therapy

== ENCOUNTER → 2024-06-14 | Outpatient (REF) | payer MEDICARE | LOC: M LAB REF 17:15 | PROVIDERS: ATTEND Physician Assistant | DX: H02.9 Unspecified disorder of eyelid (principal) ==

== ENCOUNTER → 2024-11-11 | Outpatient (REF) | payer MEDICARE ==
[2024-11-11 21:53] LABS: APPEARANCE, URINE HAZY (CLEAR); BACTERIA, URINE AUTO 1+ (NEGATIVE); BILIRUBIN, URINE AUTO NEGATIVE (NEGATIVE); BLOOD, URINE BLOOD NEGATIVE (NEGATIVE); GLUCOSE, URINE (UA) AUTO NEGATIVE (NEGATIVE); KETONE, URINE AUTO NEGATIVE (NEGATIVE); LEUKOCYTE ESTERASE, URINE AUTO TRACE (NEGATIVE); MUCUS, URINE SMALL (NEGATIVE); NITRITE, URINE AUTO NEGATIVE (NEGATIVE); PROTEIN, URINE AUTO NEGATIVE (NEGATIVE); RBC, URINE AUTO 3 /HPF (0-3); SPECIFIC GRAVITY URINE AUTO 1.017 (1.002-1.035); SQUAMOUS EPITHELIAL CELL UR AU 3 /HPF (0-6); UROBILINOGEN, URINE AUTO 0.2 mg/dL (0.0-2.0); WBC, URINE AUTO 6 /HPF (0-3)
== END ==
LOC: M LAB REF 21:12 → EEVIPCON 21:12
PROVIDERS: ATTEND Physician Assistant Medical
DX: N39.0 Urinary tract infection, site not specified (principal)